=== PATIENT | female | born 1970 | race Caucasian/White ===

== ENCOUNTER 2018-10-02 11:29 | Emergency (ER) | payer SELFPAY ==
[~2018-10-02 11:29] MED LIST: Iopamidol 370 76% 100 ML VIAL ONE
[2018-10-02] MEDS ORDERED: Sodium Chloride 0.9% 1,000 ML ONE (11:56)
[2018-10-02] MEDS ORDERED: Ondansetron PF 4 MG/2 ML Vial ONE (11:56)
[2018-10-02] MEDS ORDERED: Morphine 4 MG/ML VIAL ONE (11:56)
[2018-10-02 12:22] LABS: INR-International Normal Ratio 0.9; PTT 26.3 SEC (22.9-36.1); Prothrombin Time 12.4 SEC (12.0-14.7)
[2018-10-02 12:28] LABS: #Eosinphils 0.2 thou/uL (0.0-0.7); #Lymphocytes 0.8 thou/uL (1.20-3.40); #Monocytes 0.3 thou/uL (0.11-0.59); #Neutrophils 1.9 thou/uL (1.40-6.50); %Basophils 0.7 % (0.0-1.0); %Eosinophils 6.2 % (0.0-10.0); %Lymphocytes 25.4 % (21.0-51.0); %Monocytes 9.1 % (0.0-10.0); %Neutrophils 58.7 % (42.0-75.0); Anisocytosis SLIGHT = 6-15 cells (100X) (0-5/hpf); Hypochromia SLIGHT = 6-15 cells (100X) (0-5/hpf); MDiff Complete? YES; Mean Corpuscular HGB CONC 29.3 g/dL (32.0-36.0); Mean Corpuscular Volume 71.8 fL (78.0-98.0); Mean Platelet Volume 5.6 fL (7.4-10.4); Microcytosis SLIGHT = 6-15 cells (100X) (0-5/hpf); Platelet Count 203 thou/uL (130-400); Platelet Morphology Comment Appears Adequate; RBC Distribution Width 19.3 % (11.5-14.5); Red Blood Cell (RBC) Count 3.81 mill/uL (4.20-5.40); White Blood Cell (WBC) Count 3.2 thou/uL (4.8-10.8)
[2018-10-02 12:30] LABS: ALT (SGPT) 54 U/L (8-55); AST (SGOT) 50 U/L (5-34); Albumin 4.1 g/dL (3.5-5.0); Alkaline Phosphatase 95 U/L (40-150); Anion Gap 14 mmol/L (10-20); BUN (Urea Nitrogen) 19 mg/dL (7.0-18.7); Bilirubin, Total 0.3 mg/dL (0.2-1.2); Calc. Creatinine Clearance 0 mL/min (70-130); Calcium 9.5 mg/dL (7.8-10.44); Carbon Dioxide 25 mmol/L (22-29); Chloride 108 mmol/L (98-107); Estimated GFR-MDRD 69; Globulin 3.2 g/dL (2.4-3.5); Glucose 115 mg/dL (70-105); Potassium 4.6 mmol/L (3.5-5.1); Protein, Total 7.3 g/dL (6.0-8.3); Sodium 142 mmol/L (136-145)
--- NOTE | 2018-10-02 12:37 | CT ---
Exam: Head CT without contrast HISTORY: Pain. Trauma. COMPARISON: none FINDINGS: Hemorrhage: No intraparenchymal hemorrhage or extra-axial hematoma. Brain parenchyma: Cortical barrett-white matter differentiation is preserved. No mass effect or midline shift. Basilar cisterns are patent. Ventricular system: Ventricles and sulci are patent and symmetric. Calvarium: Intact. Sinuses and mastoid air cells: Adequate aeration. IMPRESSION: No acute intracranial process.
--- NOTE | 2018-10-02 12:42 | CT ---
Exam: CT cervical spine without contrast HISTORY: Trauma. Pain. COMPARISON: None FINDINGS: No craniocervical dissociation. Appropriate alignment of the lateral masses of C1 and C2. Intact odon toid process Appropriate alignment of the facets. Straightening of normal cervical lordosis may be due to patient position, muscle spasm or cervical co llar. If there is concern for ligamentous injury, consider MRI Soft tissue neck structures: No mass, lymphadenopathy or hematoma. No prevertebral soft tissue swelli ng. Upper mediastinum and lung apices: Unremarkable Central spinal canal: Neural foramina and central spinal canal are patent. Evaluation is limited by t echnique Vertebral bodies: Cervical spine vertebral body height is maintained. No fracture. IMPRESSION: 1. No fracture. 2. Straightening of normal cervical lordosis as detailed above.
--- NOTE | 2018-10-02 12:50 | CT ---
Exam: Chest CT with contrast Abdomen CT with contrast Pelvic CT with contrast Limited CT of the thoracic and lumbar spine HISTORY: Pain. Trauma. Correlation: None COMPARISON: None FINDINGS: Chest CT: Mediastinum: No mass, lymphadenopathy or hematoma Aorta: Normal caliber. No aneurysm, dissection or periaortic fat stranding Heart: Normal heart size. No pericardial fluid Trachea and central bronchi: Patent Pleural spaces: No pleural effusion Right lung: No masses or consolidation Left lung:No masses or consolidation Pneumothorax: None Abdomen CT: Gallbladder: Unremarkable Portal vein: Patent Liver: Appropriate enhancement. Spleen: Appropriate enhancement Pancreas: Appropriate enhancement Adrenal glands: Appropriate enhancement Lymphadenopathy: No gastrohepatic, retrocrural or periportal lymphadenopathy Kidneys: Symmetric enhancement. No obstructive uropathy Mesentery: No mass, lymphadenopathy, free air or free fluid Alimentary canal: Limited evaluation due to lack of oral contrast. No evidence of bowel obstruction. Unremarkable ileocecal junction. Normal caliber appendix. Diverticulosis, without evidence of diverticulitis. Pelvis CT: No mass, lymphadenopathy, free air or free fluid. Unremarkable urinary bladder Uterus and adnexal structures are normal. Possible 1 cm subserosal uterine leiomyoma at the left aspe ct of the fundus Osseous structures:No evidence of a bony thoracic or bony pelvic fracture Limited CT of the thoracic and lumbar spine: No fracture. 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 IMPRESSION: No posttraumatic change in the chest abdomen or pelvis
== END 2018-10-02 13:51 | disposition home or self-care (01) ==
LOC: MADERS 11:29
DX: S16.1XXA Strain of muscle, fascia and tendon at neck level, initial encounter (principal); D72.829 Elevated white blood cell count, unspecified; D72.819 Decreased white blood cell count, unspecified; D50.9 Iron deficiency anemia, unspecified; G89.11 Acute pain due to trauma; F17.210 Nicotine dependence, cigarettes, uncomplicated; V80.010A Animal-rider injured by fall from or being thrown from horse in noncollision accident, initial encounter
CPT/HCPCS: 36415; 70450; 71260; 72125; 74177; 80053; 85025; 85610; 85730; 93005; 96361; 96374; 96375; 99407; J2270; J2405; J7050; Q9967